=== PATIENT | male | born 1950 | race Caucasian/White ===

== ENCOUNTER → 2016-06-06 | Outpatient (REF) | payer OTHER | LOC: M SFHCLERA 14:36 | PROVIDERS: ATTEND Nurse Practitioner Family | DX: R50.9 Fever, unspecified (principal) ==

== ENCOUNTER → 2020-03-04 | Outpatient (CLI) | payer SELFPAY | LOC: M LABSMTC 18:11 | PROVIDERS: ATTEND Pediatrics | DX: Z20.828 Contact with and (suspected) exposure to other viral communicable diseases (principal) ==

== ENCOUNTER → 2020-03-08 | Outpatient (CLI) | payer SELFPAY | LOC: M LABSMTC 12:36 | PROVIDERS: ATTEND Pediatrics | DX: Z20.828 Contact with and (suspected) exposure to other viral communicable diseases (principal) ==